=== PATIENT | female | born 1940 | race Caucasian/White ===

== ENCOUNTER → 2017-11-30 | Outpatient (CLI) | payer OTHER ==
[~2017-11-30] MED LIST: ADULT LOW DOSE81 MG PO; ALLEGRA-D 12 H1 EAC1 PO; BUSPIRONE HCL5 MG PO; CALCIUM 500 +1 EAC5 PO; CARVEDILOL3.125 MG PO; COLACE100 MG PO; FLAX SEED OIL1000 MG PO; GRAPE SEED25 MG PO; LEVOTHYROXIN0.025 MG PO; MOM PO; NIACIN 500 MG500 M1 PO; NITROGLYCERIN0.4 MG SL; NORCO 5-325 TA1 EACH; PAIN & FEVER325 MG PO; PLAVIX 75 MG TA75 MG PO; RED YEAST RICE600 MG PO; SENTRA AM CAPS1 EACH; ZETIA10 MG PO
[2017-11-30 11:59] LABS: CHOLESTEROL 208 mg/dL (<200); HDL CHOLESTEROL 74 mg/dL (>40); LDL CHOLESTEROL 110 mg/dL (<100); TC:HDL 2.8 Ratio (Not establshd); TRIGLYCERIDE 122 mg/dL (<150); VLDL 24 mg/dL (<40)
[2017-11-30 12:01] LABS: SERUM ASSESSMENT Clear
== END ==
LOC: M.LAB 11:00
PROVIDERS: Internal Medicine Cardiovascular Disease
DX: E78.5 Hyperlipidemia, unspecified (principal)

== ENCOUNTER → 2018-02-22 | Outpatient (CLI) | payer OTHER ==
[2018-02-22 10:07] LABS: CHOLESTEROL 173 mg/dL (<200); HDL CHOLESTEROL 71 mg/dL (>40); LDL CHOLESTEROL 82 mg/dL (<100); TC:HDL 2.4 Ratio (Not establshd); TRIGLYCERIDE 104 mg/dL (<150); VLDL 21 mg/dL (<40)
[2018-02-22 10:08] LABS: SERUM ASSESSMENT Clear
== END ==
LOC: M.LAB 09:39
PROVIDERS: Internal Medicine Cardiovascular Disease
DX: E78.5 Hyperlipidemia, unspecified (principal)

== ENCOUNTER 2020-02-01 19:38 | Inpatient (IN) | payer OTHER ==
[~2020-02-01] VITALS: Ht 172.7 cm; Wt 79.3 kg
[~2020-02-01 19:38] MED LIST changes: -LEVOTHYROXIN0.025 MG PO; +SYNTHROID25 MC1 PO
[2020-02-01 19:48] VITALS: BP 157/60
[2020-02-01] MEDS ORDERED: PLAVIX 75 MG TA75 MG PO (19:55)
[2020-02-01] MEDS ORDERED: CARVEDILOL12.5 MG PO (19:55)
[2020-02-01] MEDS ORDERED: HYDROXYZINE HCL25 M2 (19:56)
[2020-02-01 20:34] LABS: ABSOLUTE BASOPHILS 0.1 thou/uL (0.0-0.2); ABSOLUTE EOSINOPHILS 0.3 thou/uL (0.0-0.7); ABSOLUTE LYMPHOCYTES 1.1 thou/uL (0.8-5.3); ABSOLUTE MONOCYTES 0.5 thou/uL (0.0-1.2); ABSOLUTE NEUTROPHILS 5.9 thou/uL (1.6-8.1); BASOPHILS 0.7 %; EOSINOPHILS 3.6 %; HEMOGLOBIN 12.4 gm/dL (12.0-15.0); LYMPHOCYTES 14.2 %; MCH 29.4 pg (26.0-34.0); MCHC 33.4 g/dL (28.0-37.0); MCV 87.9 fL (80.0-100.0); MONOCYTES 6.7 %; MPV 8.3 fl. (7.2-11.1); NUCLEATED RBCS 0 /100WBC; PLATELET COUNT* 240 thou/uL (150-400); POLYS 74.8 %; RBC 4.21 mil/uL (4.20-5.00); RDW-CV 14.4 % (10.5-14.5); WBC 7.8 thou/uL (4.0-11.0)
[2020-02-01 20:43] LABS: CALCIUM 8.5 mg/dL (8.5-10.1); CREATININE 1.6 mg/dL (0.6-1.3); POTASSIUM 4.3 mmol/L (3.5-5.1)
[2020-02-01 20:46] LABS: INR 0.9; PROTIME 9.6 Seconds (9.20-11.50)
[2020-02-01 20:53] LABS: ALBUMIN 2.7 g/dL (3.4-5.0); MAGNESIUM 1.6 mg/dL (1.8-2.4); TOTAL BILIRUBIN 0.3 mg/dL (<0.1-1.0); TOTAL PROTEIN 6.3 g/dL (6.4-8.2)
[2020-02-01 23:33] VITALS: BP 137/54
[2020-02-02] VITALS: BP 122/45
[2020-02-02 04:30] VITALS: BP 131/49
[2020-02-02 08:00] VITALS: BP 137/44
--- NOTE | 2020-02-02 08:10 | EKG ---
[place] [address] ELECTROCARDIOGRAM REPORT Name: TARA HERRERA Room: [address] ADM IN ..#: [id number] Admission: 02/01/20 Attend Phys: Anant Ruiz, Discharge: Date of : 36 Date of Service: 02/01/202011 Report #: [id number] THIS REPORT FOR: //name// [facility] ED Test Date: 2020-02-01 Test Time: 20:12:23 Pat Name: TARA HERRERA Department: Room: [facility] Gender: F Assistant Manager Bilingual: EMILY : 1940 Requested By: Wendi Love Order Number: [id number] MD: Vadim Lucas Measurements Intervals [place] Rate: 85 P: 56 [place]: 143 QRS: -19 QRSD: 118 T: QT: 385 QTc: 458 Interpretive Statements Sinus rhythm borderline intraventricular conduction delay Compared to ECG 03/12/2014 09:44:38 Intraventricular conduction delay now present Ventricular premature complex(es) no longer present T-wave abnormality no longer present Possible ischemia no longer present Prolonged QT interval no longer present Electronically Signed On 02-02-2020 8:08:28 CDT by Vadim Lucas [email or web address] <ELECTRONICALLY SIGNED> By: Vadim Lucas MD, [facility] 02/02/20 0808 11 11 Vadim Lucas MD, [facility] /EPI
[2020-02-02 08:42] LABS: URINE BILIRUBIN NEGATIVE (Negative); URINE BLOOD NEGATIVE (Negative); URINE CLARITY CLEAR; URINE COLOR YELLOW; URINE GLUCOSE-RANDOM NEGATIVE (Negative); URINE KETONES NEGATIVE (Negative); URINE LEUKOCYTES-REFLEX 1+ (Negative); URINE NITRITE-REFLEX NEGATIVE (Negative); URINE PROTEIN NEGATIVE (Negative); URINE SPECIFIC GRAVITY >= 1.030 (1.005-1.030); URINE UROBILINOGEN 0.2 E.U./dl (0.2-1.0)
[2020-02-02 08:57] LABS: BACTERIA-REFLEX 1-9 Few /HPF (None Seen); CASTS None Seen /LPF (None Seen); CRYSTALS None Seen /LPF (None Seen); MUCUS 0-3 Light strn/LPF (None Seen); SQUAMOUS 0-3 Few /LPF (0-3); URINE RBC 0-2 Rare /HPF (0-2); URINE WBC-REFLEX 6-15 Few /HPF (0-5)
[2020-02-02 09:07] LABS: CALCIUM 8.4 mg/dL (8.5-10.1); CREATININE 1.4 mg/dL (0.6-1.3); POTASSIUM 4.7 mmol/L (3.5-5.1)
--- NOTE | 2020-02-02 11:19 | 2DMMODE ---
[place] [address] 2 D/M-MODE ECHOCARDIOGRAM Name: TARA HERRERA Room: [address] IN .R.#: [id number] Admission: 02/01/20 Attend Phys: Anant Ruiz, Discharge: Date of : 36 Date of Service: 02/02/20 1117 Report #: [id number] THIS REPORT FOR: cc: Eben Briscoe MD, Anthony MD Liston, Michael J. MD [facility] ~ APPROVED REPORT Study performed: 02/02/2020 09:14:58 EXAM: Comprehensive 2D, Doppler, and color-flow Echocardiogram Patient Location: In-Patient BSA: 1.36 HR: 81 bpm BP: 137/44 mmHg Other Information Study Quality: Good Indications CVA/TIA Echo Enhancing Agent Indication: Rule out Shunt Agent(s) / Amount(s) Used: Agitated Saline cc 2D Dimensions IVSd: 10.55 (7-11mm) LVOT Diam: 16.40 (18-24mm) LVDd: 43.04 mm PWd: 4.80 (7-11mm) Ascending Ao: 31.20 (22-36mm) LVDs: 29.21 (25-40mm) Aortic Root: 27.32 mm Volumes Left Atrial Volume (Systole) LA ESV Index: 22.30 mL/m2 Aortic Valve AoV Peak Héctor.: 1.08 m/s AO Peak Gr.: 4.63 mmHg LVOT Max P.93 mmHg AO Mean Gr.: 2.31 mmHg LVOT Mean P.52 mmHg LVOT Max V: 0.86 m/s AO V2 VTI: 19.63 cm LVOT Mean V: 0.57 m/[place] [address] 2 D/M-MODE ECHOCARDIOGRAM Name: TARA HERRERA Room: [address] IN ..#: [id number] Admission: 02/01/20 Attend Phys: Anant Ruiz, Discharge: Date of : 36 Date of Service: 02/02/20 1117 Report #: [id number] FERNANDA (VTI): 2.03 cm2 LVOT V1 VTI: 18.89 cm Mitral Valve E/A Ratio: 0.86 MV Decel. Time: 242.42 ms MV E Max Héctor.: 0.65 m/s MV PHT: 70.30 ms MVA (PHT): 3.13 cm2 TDI E/Lateral E': 7.22 E/Medial E': 9.29 Medial E' Héctor.: 0.07 m/s Lateral E' Héctor.: 0.09 m/s Pulmonary Valve PV Peak Héctor.: 1.07 m/s PV Peak Gr.: 4.59 mmHg Tricuspid Valve RAP Estimate: 5.00 mmHg TR Peak Gr.: 29.71 mmHg RVSP: 34.71 mmHg PA Pressure: 34.71 mmHg Left Ventricle The left ventricle is normal size. There is normal LV segmental wall motion. There is normal left ventricular wall thickness. Left ventricular systolic function is normal. LVEF is 60-65%. Grade I - abnormal relaxation pattern. Right Ventricle The right ventricle is normal size. The right ventricular systolic function is normal. Atria The left atrium size is normal. Injection of bubbles documented no interatrial shunt. The right atrium size is normal. Aortic Valve The aortic valve is normal in structure. No aortic regurgitation is present. There is no aortic valvular stenosis. Mitral Valve The mitral valve is normal in structure. There is no mitral valve regurgitation noted. No evidence of mitral valve stenosis. Tricuspid Valve The tricuspid valve [place] [address] 2 D/M-MODE ECHOCARDIOGRAM Name: TARA HERRERA Room: [address] IN ..#: [id number] Admission: 02/01/20 Attend Phys: Anant Ruiz, Discharge: Date of : 36 Date of Service: 02/02/20 1117 Report #: [id number] regurgitation. Pulmonic Valve The pulmonary valve is normal in structure. Mild pulmonic regurgitation. Great Vessels The aortic root is normal in size. IVC is not visualized. Pericardium There is no pericardial effusion. <Conclusion> The left ventricle is normal size. There is normal left ventricular wall thickness. Left ventricular systolic function is normal. LVEF is 60-65%. Grade I - abnormal relaxation pattern. Injection of bubbles documented no interatrial shunt. Trace tricuspid regurgitation. <ELECTRONICALLY SIGNED> By: Vadim Lucas MD, [facility] 02/02/20 1117 16 16 Vadim Lucas MD, FACC /INF
[2020-02-02 11:37] VITALS: BP 151/48
[2020-02-02 15:55] VITALS: BP 123/51
[2020-02-02 20:00] VITALS: BP 151/51
[2020-02-03] VITALS: BP 131/52
[2020-02-03 04:00] VITALS: BP 146/47
[2020-02-03 05:14] LABS: ALBUMIN 2.4 g/dL (3.4-5.0); ALKALINE PHOSPHATASE 108 U/L (46-116); ANION GAP 9 mmol/L (7-16); BUN 20 mg/dL (7-18); CALCIUM 8.2 mg/dL (8.5-10.1); CHLORIDE 103 mmol/L (98-107); CHOLESTEROL 212 mg/dL (<200); CO2 26 mmol/L (21-32); CREATININE 1.1 mg/dL (0.6-1.3); GLUCOSE 80 mg/dL (70-99); HDL CHOLESTEROL 52 mg/dL (>40); LDL CHOLESTEROL 134 mg/dL (<100); POTASSIUM 4.8 mmol/L (3.5-5.1); SGOT 39 U/L (15-37); SGPT 14 U/L (30-65); SODIUM 138 mmol/L (136-145); TC:HDL 4.1 Ratio (Not establshd); TOTAL BILIRUBIN 0.4 mg/dL (<0.1-1.0); TOTAL PROTEIN 5.3 g/dL (6.4-8.2); TRIGLYCERIDE 130 mg/dL (<150); VLDL 26 mg/dL (<40)
[2020-02-03 05:23] LABS: SERUM ASSESSMENT Clear
[2020-02-03] MEDS ORDERED: KEFLEX500 M2 PO (07:06)
[2020-02-03 12:20] VITALS: BP 135/51
[2020-02-03 15:55] VITALS: BP 125/43
[2020-02-03 19:30] VITALS: BP 133/49
[2020-02-03 23:50] VITALS: BP 124/56
[2020-02-04 02:09] LABS: GLYCOHEMOGLOBIN (HGB A1C) 6.2 % (4.8-5.6)
[2020-02-04 04:15] VITALS: BP 149/55
[2020-02-04 05:28] LABS: CALCIUM 8.8 mg/dL (8.5-10.1); CREATININE 1.1 mg/dL (0.6-1.3); MAGNESIUM 1.5 mg/dL (1.8-2.4); POTASSIUM 4.2 mmol/L (3.5-5.1)
[2020-02-04 09:00] VITALS: BP 99/50
[2020-02-04 12:00] VITALS: BP 121/48
[2020-02-04 17:37] VITALS: BP 150/57
[2020-02-04 19:40] VITALS: BP 146/56
[2020-02-04 23:09] LABS: IgA 83 mg/dL (64-422); IgG 849 mg/dL (586-1602); IgM 96 mg/dL (26-217)
[2020-02-05] VITALS: BP 132/54
[2020-02-05 08:00] VITALS: BP 118/43
[2020-02-05] MEDS ORDERED: ASA81BEC PO (09:07)
[2020-02-05] MEDS ORDERED: HYDROCODON-ACE1 EAC7 PO (09:08)
[2020-02-05 11:00] VITALS: BP 118/43
--- NOTE | 2020-02-08 08:38 | CON ---
[address] [address] CONSULTATION Name: TARA HERRERA Room: [address] IN M.R.#: [id number] Admission: 02/01/20 Attend Phys: Anant Ruiz MD Discharge: 02/05/20 Date of : 36 Report #: [id number] THIS REPORT FOR: //name// cc: Eben Briscoe MD, Anthony MD ~ THIS REPORT FOR: //name// CC: Eben Ruiz DATE OF SERVICE: 02/04/2020 REASON FOR CONSULTATION: Iliac artery stenosis. HISTORY OF PRESENT ILLNESS: The patient is an 79-year-old female who presented with history of coronary artery disease, CVA, and complaint of right leg pain in posterior thigh region associated with leg swelling. She also complained of sudden onset double vision, worse when looking to the right for several days. She was found in the Emergency Department to have a lateral gaze palsy of the right eye. She had an outpatient workup, which included an MRI of the spine and deep vein thrombosis scan. These records demonstrated an infiltrative mass arising from the left paraspinous region and appeared to compress the lumbar spine. The deep vein thrombosis scan was negative for lower extremity deep vein thrombosis, but did not include iliac venous analysis. The patient's main complaint is her right thigh swelling. She denies history of this. She denies history of prior deep vein thrombosis. She has no history of claudicating symptoms. PAST MEDICAL HISTORY: Significant for some coronary artery disease, hypothyroidism, hypertension, hyperlipidemia, and stroke. PAST SURGICAL HISTORY: Significant for right total knee replacement. REVIEW OF SYSTEMS: Ten-point review of system is negative except as in the HPI. SOCIAL HISTORY: The patient smokes less than a half pack per day. She smoked for more than 50 years. ALLERGIES: No known drug allergies. MEDICATIONS: Please see med rec. PHYSICAL EXAMINATION: [place] [address] CONSULTATION Name: TARA HERRERA Room: [address]#: [id number] Admission: 02/01/20 Attend Phys: Anant Ruiz MD Discharge: 02/05/20 Date of : 36 Report #: [id number] VITAL SIGNS: T-max 36.7, afebrile. Vital signs are stable. GENERAL: The patient is in no acute distress, alert and oriented x 3. She has a patch over her right eye, which is to assist with her lateral gaze palsy. NECK: Supple. No thyromegaly or masses. HEART: Regular rate and rhythm. LUNGS: Clear. ABDOMEN: Soft, nondistended, nontender to palpation. She has palpable femoral pulses bilaterally. She has palpable pedal pulses bilaterally. Her right thigh is more swollen than her left. IMAGING STUDIES: Review of her imaging demonstrates a Doppler ultrasound, which demonstrated the aorta and iliac arteries to be patent. There was concern for possible right common iliac artery stenosis due to elevated velocity. ASSESSMENT AND PLAN: The patient is an 79-year-old female with new onset right lower extremity swelling with history of retroperitoneal paraspinal mass, which by CT-guided biopsy appears to be the right side, not the left as reported previously. This may be compressing her iliac venous system as there is no direct evidence of deep vein thrombosis. Suspected that her iliac artery stenosis is asymptomatic and may also be related to compression if the mass is large. Again, I am not able to visualize any imaging directly recently outside reports. Further evaluation with venogram or CT venogram could assess for iliac vein deep vein thrombosis with recent biopsy, would not prophylactically treat with anticoagulation. From my standpoint, no further intervention is required. Thank you for allowing me to participate in this patient's care. Please do not hesitate to call should you have any further questions or concerns. <ELECTRONICALLY SIGNED> By: Jack Soriano MD 02/08/20 0838 1851 [id number] Irby DO /pepe
--- NOTE | 2020-02-13 18:46 | CON ---
[address] [address] CONSULTATION Name: TARA HERRERA Room: [address] IN .R.#: [id number] Admission: 02/01/20 Attend Phys: Anant Ruiz MD Discharge: 02/05/20 Date of : 36 Report #: [id number] THIS REPORT FOR: //name// cc: Eben Briscoe MD, Anthony MD ~ THIS REPORT FOR: //name// CC: Eben Ruiz DATE OF SERVICE: 02/02/2020 HISTORY OF PRESENT ILLNESS: This is an 79-year-old female patient who was discussed with Emergency Room physician last night. The patient presented with diplopia. Diplopia is by looking towards the right. On examination later on she has right abducens palsy. If she closes one eye, she does not see double. She has seen either an multimedia manager or loading dock helper and apparently they did not find any definite abnormality except for this double vision. REVIEW OF SYSTEMS: Positive for swelling of the right lower extremity. This is going on for some time. She has a history of coronary artery disease, hyperlipidemia, hypothyroidism, hypertension. That was a relevant 14-point review of system. PAST MEDICAL HISTORY: Negative for strokes. FAMILY HISTORY: Negative for any early age CVA. SOCIAL HISTORY: She smokes. PHYSICAL EXAMINATION: Indicate the patient is alert, responsive, able to follow simple and complex command. Her right leg is swollen. Cranial nerve examination indicate right abducens palsy. Rest of the neurological examinations appear noncontributory. IMAGING: She had an MRI and I reviewed that. It does not show any abnormality. 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 We will work her up to some extent by doing a sed rate. She needs myasthenia markers. I do not know if it can be done as an inpatient or has to be done as an outpatient by hospital policy. If it cannot be done as an inpatient, we need to arrange it as an outpatient. I discussed all of it with the patient. I talked to the nurses and asked them to arrange an eye patch on her and she should switch eye every 4 hours with that eye patch. [place] [address] CONSULTATION Name: TARA HERRERA Room: [address]#: [id number] Admission: 02/01/20 Attend Phys: Anant Ruiz MD Discharge: 02/05/20 Date of : 36 Report #: [id number] A total of about 50 minutes of time was spent taking care of this patient and majority of that time was spent counseling and coordinating. <ELECTRONICALLY SIGNED> By: Jax Han MD 02/13/20 1846 1710 [id number] Han MD /pepe
--- NOTE | 2020-02-23 10:08 | PATH ---
[address] [address] PATHOLOGY RPT PROCEDURE Name: ALEXSANDRA FIGUEROA Room: [address] IN ..#: [id number] Admission: 02/01/20 Date of : 36 Discharge: 02/05/20 Report #: [id number] Path Case #: [id number] [facility] Accession Number: [id number] . 01 Material submitted: . lymph node - LYMPHADENOPATHY PARASPINAL MASS . 01 Clinical history: . Paraspinal mass . 02 Diagnosis: Lymph node, paraspinal mass, needle core biopsy: - Diffuse large B-cell lymphoma. (Please see comment) . (MEG:akrin; 02/09/2020) . . . Surgical Pathology Cancer Case Summary . NON-HODGKIN LYMPHOMA/LYMPHOID NEOPLASMS: Biopsy, Resection . Specimen ___ Other (specify): Paraspinal mass . Procedure ___ Biopsy . Tumor Site ___ Other tissue(s) or organ(s): Paraspinal mass . Histologic Type . Mature B-Cell Neoplasms ___ Diffuse large B-cell lymphoma (DLBCL), NOS . . Immunophenotyping (flow cytometry and/or immunohistochemistry) ___ Performed, see separate report: Flow cytometry from [facility] ([id number]) ___ Performed Specify method(s) and results: Immunohistochemical stains: Please see comment . + Cytogenetic Studies + ___ Not performed . + [place] [address] PATHOLOGY RPT PROCEDURE Name: ALEXSANDRA FIGUEROA Room: [address] IN [facility].#: [id number] Admission: 02/01/20 Date of : 36 Discharge: 02/05/20 Report #: [id number] Path Case #: [id number] + ___ Not performed . . These findings will be relayed and documented as an addendum report. (MEG:karin; 02/09/2020) . . Special studies report received from [facility], [address] [place] [address], [address], [place], [address], on case [id number], labeled with their number [id number], dated 02/09/2020. . Flow Cytometry: Hematologic Neoplasia Assessment . Clinical History Retroperitoneal lymphadenopathy and paraspinal mass . Indication for Study Evaluation for lymphadenopathy . Specimen Tissue, paraspinal mass . Viability 39% (7AAD exclusion) . Interpretation Tissue, paraspinal mass: - CD10+ monotypic B-cell population (8.5%) with intermediate/increased cell size; in a limited study (see comment). . Comments A limited panel of markers was performed due to very low cell yield. The flow cytometry results are consistent with a B-cell lymphoma with features of germinal center/follicular origin. The differential diagnosis includes follicular lymphoma, Burkitt lymphoma and diffuse large B-cell lymphoma. The increased cell size favors a high grade process. Correlation with all available clinical, laboratory, and morphologic data is necessary for further classification of this process. Given the reduced specimen viability, these results need to be interpreted with caution. . Populations Analyzed Abnormal B-cells: 8.5% Scatter properties of intermediate/increased cell size: CD45+, CD19+, CD20+, CD10+, CD5-, sIg-, cIg kappa+ Lymphocytes: 13.5% B-cells: 0.0% polytypic/polyclonal sIg light chain pattern T-cells: present (CD5+) CD45 Negative 78% No significant reactivity with the markers tested Events/Debris: (may represent non-hematolymphoid cells, [place] [address] PATHOLOGY RPT PROCEDURE Name: ALEXSANDRA FIGUEROA Room: [address] IN [facility]#: [id number] Admission: 02/01/20 Date of : 36 Discharge: 02/05/20 Report #: [id number] Path Case #: [id number] degenerated cells, debris, unlysed red blood cells, etc.) . Morphologic Evaluation A slide was reviewed for quality review trainer purposes only. . Specimen Description Due to low cell count, the lab is unable to provide an accurate cell yield. A limited panel of antibodies was performed and an average of 3,657 events were acquired per tube. Flow cytometry data derived from an acquisition with less than 10,000 events needs to be interpreted within the context of all clinical, laboratory, and morphologic information. This sample is less than 50% viable which is considered suboptimal for routine clinical flow cytometry analysis. . Reagent(s) Used CD5, CD10, CD19, CD20, CD45, kappa, lambda, CytoKappa, CytoLambda . at [facility] Bijan Malhotra MD Pathologist . . Intended Use Flow cytometry is optimally used to immunophenotypically characterize abnormal populations when they are detected. Negative flow cytometry results do not exclude lymphoma or neoplasia. Possible false negative flow cytometry results may occur in, but are not limited to, the following: neoplastic cells in Hodgkin lymphoma are not typically adequately represented by routine clinical flow cytometry; neoplastic cells may be lost or inadequately represented due to degeneration, sample processing, sampling artifact, or patchy involvement; plasma cells are typically underrepresented by flow cytometry; immature cells/blasts may be underrepresented due to hemodilution; myeloproliferative disorders and low grade myelodysplasia may not have immunophenotypic abnormalities or increased blasts. Correlation with all available clinical, laboratory, and morphologic data is always necessary to assess for the possibility of false negative flow cytometry results and to establish a diagnosis. Each marker in this analysis was used to assess for potential antigenic abnormalities or to evaluate detected abnormalities. . Any image or images that accompany this report are traveling sales representative images only and should not be used to render a diagnosis. . Disclaimer(s) This test was developed and its performance characteristics determined by [facility] It has not been cleared or approved by the Food [place] [address] PATHOLOGY RPT PROCEDURE Name: ALEXSANDRA FIGUEROA Room: [address] DIS IN M.R.#: [id number] Admission: 02/01/20 Date of : 36 Discharge: 02/05/20 Report #: [id number] Path Case #: [id number] . Performing Labs [facility] is a business unit of [email or web address] a wholly-owned subsidiary of [employer]. . This test was performed at [facility]. at [address], [place], [address] - Help Desk Analyst: Ruben Mitchell MD. . For inquiries, the physician may contact Lab: [phone] . A complete copy of the report is on file. . Professional services performed by [facility]. at [address], [place] [address]. Technical services performed by [employer]. at [address], [place] [address]. . (JMQ:winnie 02/09/2020) . [facility] 02/11/2020 1033 Local . 02 Comment: Examination of the paraspinal mass biopsy shows proliferation of large neoplastic lymphoid cells with fairly round nuclear borders, moderate amount of cytoplasm and prominent nucleoli. Immunophenotypic studies by flow cytometry reveal a CD10+ monotypic population (8.5%) with intermediate/increased cell size in a limited study (please see separate flow cytometry report from [facility] [id number]). To further characterize the lymphoid cells in a tissue architectural context, immunohistochemical stains are performed with appropriate controls: . Block A3: CD20: Positive CD10: Positive BCL-6: Positive CD23: Focal positive CD3: Highlights T-lymphoid cells CD5: Highlights T-lymphoid cells BCL-2: Negative BCL-1: Negative MUM1: Negative Ki-67: Approximately 40 to 50% proliferation fraction . . Block A2: CD45: [place] [address] PATHOLOGY RPT PROCEDURE Name: ALEXSANDRA FIGUEROA Room: [address]#: [id number] Admission: 02/01/20 Date of : 36 Discharge: 02/05/20 Report #: [id number] Path Case #: [id number] CK7: Negative CK20: Negative CK ELLY: Negative WT-1: Weak to absent staining ER: Negative S100: Negative PAX 8: Faintly positive CDX-2: Negative TTF-1: Negative Inhibin: Negative . Based on the morphology, immunohistochemical staining pattern and flow cytometry, these findings are consistent with involvement by diffuse large B-cell lymphoma. FISH for aggressive B-cell lymphoma is pending to further classify the large B-cell lymphoma. An addendum report will be submitted separately. . Co-reviewed with Dr. Maximo Nash . (MEG:karin; 02/09/2020) . 02 Addendum: . Special studies report received from [facility], [address] [place] [address], [address], [place], [address], on case [id number] A3, labeled with their number [id number], dated 02/17/2020. . Fluorescence in situ Hybridization (FISH) Report [facility] Analysis . RESULT: Assay specific abnormalities detected by Aggressive B-cell Lymphoma FISH panel: BCL2 gene rearrangement, and MYC gene rearrangement . Specimen Type: Tissue, Paraspinal Mass . Indication for Study: Diffuse large B-cell lymphoma. . INTERPRETATION: Fluorescence in situ hybridization (FISH) analysis was performed on this patient's paraffin-embedded tissue specimen using DNA probes for Aggressive B-cell Lymphoma panel. One hundred interphase nuclei were examined for each probe and the signal patterns revealed the following: . Positive for a rearrangement of MYC gene (27.0% of nuclei). Positive for a rearrangement of BCL2 gene (32.0% of nuclei). . The signal pattern obtained with the remaining BCL6 probe did not differ significantly from the [place]. [place] [address] PATHOLOGY RPT PROCEDURE Name: ALEXSANDRA FIGUEROA Room: [address]#: [id number] Admission: 02/01/20 Date of : 36 Discharge: 02/05/20 Report #: [id number] Path Case #: [id number] MYC gene rearrangement is characteristically observed in Burkitt lymphoma and may be observed in large B-cell lymphoma. MYC rearrangement seen in conjunction with BCL2 rearrangements may represent high grade B-cell lymphoma, with MYC and BCL2 translocations ("double-hit" lymphoma). Some lymphomas with combined MYC and BCL2 rearrangements may represent transformed follicular lymphoma. . Although these results may suggest a double-hit lymphoma, a complete review of other laboratory results including morphologic and immunophenotypic findings, and clinical observations is recommended for a conclusive determination. . Genetic changes other than those assayed in this study cannot be ruled out on the basis of this testing. Correlation with cytogenetic, clinical and hematopathological findings is suggested for a complete interpretation of the results. Follow-up FISH analysis may be considered as a means to monitor the clinical course of the disease. . The following [employer]Gene FISH analysis was performed on this patient's specimen: Probe Detection Parameters Result ISCN BCL2 (18q21) Detects a rearrangement Detected nuc jakub(BCL2x2)(5'BCL2 sep of the BCL2 gene 3'BCL2x1)(32/100) MYC (8q24) Detects a rearrangement Detected nuc jakub(MYCx2)(5'MYC sep of the MYC gene 3'MYCx1)(27/100) BCL6 (3q27) Detects a rearrangement Not nuc jakub(5'BCL6,3'BCL6)x2 of the BCL6 gene Detected (5'BCL6 con 3'BCL6x2)(100) . at [facility] [employer]. Judy Rose, Ph.D., FAC Director of Cytogenetics and Molecular Oncology . Methodology: The patient specimen is processed onto a glass slide. Fluorescent DNA probe(s) is(are) applied to the cells on the slide under conditions of denaturation followed by hybridization. Stringency washes are applied and the slide is subsequently counterstained. A minimum of 100 interphase nuclei are analyzed unless otherwise indicated above. . Intended Use: This assay is considered qualitative and is not intended to be used as a measure of quantitative comparison. . Disclaimer This Test was performed by [facility] [employer]. at [address], [address]. [facility] is a business unit of [facility] [employer] a wholly-owned subsidiary of [facility] [place] [address] PATHOLOGY RPT PROCEDURE Name: ALEXSANDRA FIGUEROA Room: [address] IN [facility]#: [id number] Admission: 02/01/20 Date of : 36 Discharge: 02/05/20 Report #: [id number] Path Case #: [id number] [employer]. . . Any image(s) that accompany this report is/are a traveling sales representative image(s) only and should not be used to render a diagnosis. . This test was developed and its performance characteristics determined by [facility] It has not been cleared or approved by the Food and Drug Administration. . A complete copy of the report is on file. . Professional services performed by [facility]. at [address], [place] [address]. Technical services performed by [employer] [employer]. at [address], [place] [address]. . (JMKeagan:amj 02/20/2020) . JQC/02/20/2020 Addendum Electronically Signed by Calli North MD ([facility]) . 02 Electronically signed: . Calli North MD, Pathologist NPI- [id number] . 01 Gross description: . The specimen is received in formalin, labeled "Alexsandra Figueroa". No source is listed on the container. The source is listed on the requisition as, "paraspinal mass". Received are three needle cores of pale barba soft tissue ranging in length from 0.8 to 1.8 cm in length by 0.1 cm in diameter. The specimen is submitted entirely in cassette A1 through A3. A portion of the specimen is received in RPMI solution and is forwarded on for flow cytometry studies. (CAA; 02/03/2020) QAC/QAC 02/09/2020 1421 Local . 02 Pathologist provided ICD-10: C83.30 . 02 CPT . 693079, I86434, I76663, 394599 Performed at: 01 [facility] [address], [place], [place] [id number] MD Trace Hernandez MD Phone: [phone] Performed at: 02 [facility] [address] [id number] [place] [address] PATHOLOGY RPT PROCEDURE Name: ALEXSANDRA FIGUEROA Room: [address] IN ..#: [id number] Admission: 02/01/20 Date of : 36 Discharge: 02/05/20 Report #: [id number] Path Case #: [id number] MD Calli North MD Phone: [phone]
== END 2020-02-05 12:28 | disposition home or self-care (01) | DRG 987 ==
LOC: M.ERS 19:38 → M.2W 22:50 → M.TBA-ER 22:50 → M.2W 22:50
PROVIDERS: Emergency Medicine; Psychiatry & Neurology Neurology; ADMIT Internal Medicine; ATTEND Internal Medicine
PROC: 0QB03ZX Excision of Lumbar Vertebra, Percutaneous Approach, Diagnostic (ICD-10-PCS; principal; 2020-02-03)
DX: H49.21 Sixth [abducent] nerve palsy, right eye (principal); N17.0 Acute kidney failure with tubular necrosis; E44.0 Moderate protein-calorie malnutrition; I82.422 Acute embolism and thrombosis of left iliac vein; G95.29 Other cord compression; D36.16 Benign neoplasm of peripheral nerves and autonomic nervous system of pelvis; D20.0 Benign neoplasm of soft tissue of retroperitoneum; I70.201 Unspecified atherosclerosis of native arteries of extremities, right leg; K44.9 Diaphragmatic hernia without obstruction or gangrene; J44.9 Chronic obstructive pulmonary disease, unspecified; F32.9 Major depressive disorder, single episode, unspecified; I10 Essential (primary) hypertension; I25.10 Atherosclerotic heart disease of native coronary artery without angina pectoris; E78.5 Hyperlipidemia, unspecified; Z96.651 Presence of right artificial knee joint; R73.03 Prediabetes; E03.9 Hypothyroidism, unspecified; F17.210 Nicotine dependence, cigarettes, uncomplicated; Z86.73 Personal history of transient ischemic attack (TIA), and cerebral infarction without residual deficits; Z79.899 Other long term (current) drug therapy; Z68.26 Body mass index [BMI] 26.0-26.9, adult